=== PATIENT | female | born 1975 | race Caucasian/White ===

== ENCOUNTER 2020-04-20 11:02 | Emergency (ER) | payer OTHER, SELFPAY ==
[2020-04-20 11:10] VITALS: BP 141/96; PULSE 105; RESP 16; TEMP 36.9; O2SAT 99
--- NOTE | 2020-04-20 11:21 | ED.SKABFB ---
HPI - Skin/Abscess/Foreign Bdy General Chief complaint: Skin/Abscess/Foreign Body Stated complaint: rash on hands/arms/legs Time Seen by Provider: 04/20/20 11:21 Source: patient and RN notes reviewed History of Present Illness HPI narrative: Patient is a 45-year-old female who presents to the urgent care with complaints of itchy rash to the hands, backs of the legs and lower arms. Patient states that she noticed itching on Thursday evening and woke up Thursday morning with a rash to the hands. Patient states it seems to be getting closer to her buttocks and therefore she has been worried about the spreading. Patient denies of any new creams, lotions, detergents. States that she does not really leave her home at all . And has not been out in the [place]. No other acute complaints. No acute distress noted. Patient had a plan of care. Some parts of this dictation were generated by voice recognition software and may contain typographical and/or grammatical inaccuracies. Related Data Allergies Allergy/AdvReac Type Severity Reaction Status Date / Time venom-wasp Allergy Swelling Verified 04/20/20 11:30 amoxicillin [From Augmentin] AdvReac Nausea and Verified 04/20/20 11:28 Vomiting clavulanic acid AdvReac Nausea and Verified 04/20/20 11:28 [From Augmentin] Vomiting coconut AdvReac Nausea and Verified 04/20/20 11:23 Vomiting lisinopril AdvReac Nausea and Verified 04/20/20 11:29 Vomiting Review of Systems Review of Systems: Narrative: CONSTITUTIONAL: Denies fever, chills, or sweats. EYES: Denies visual changes, redness, or discharge. ENT: Denies rhinorrhea, congestion, sore throat, or otalgia. CARDIOVASCULAR: Denies chest pain, palpitations, or edema. RESPIRATORY: Denies cough or dyspnea. GASTROINTESTINAL: Denies abdominal pain, nausea, vomiting, or diarrhea. GENITOURINARY: Denies dysuria or hematuria. SKIN: Reports of an itchy red rash to bilateral hands, backs of the legs and lower arms MUSCULOSKELETAL: Denies back pain, joint pain, or myalgia. NEUROLOGIC: Denies headache, numbness, or weakness. All other systems reviewed are negative, except as documented in HPI. PMFSH Comments At the time of my signature, I reviewed and agree with the nursing past medical, surgical, social, and family history. There is no relevant family history pertinent to the patient complaint. Exam Narrative: Exam Narrative: GENERAL: This is a well-nourished, well-developed patient, in no apparent distress. HEAD: normocephalic, atraumatic. EYES: PERRL. Sclera clear/white. Vision is grossly intact. EARS: External ears normal NOSE: External nose normal with no obvious nasal discharge, nares without redness, no rhinorrhea. THROAT: Mucous membranes moist NECK: Neck supple, SKIN: Multiple areas of erythemic urticaria noted to the bilateral palms of the hands, bilateral posterior thighs NEURO: awake, alert, and oriented to person, place and time. There were no obvious focal neurologic abnormalities. EXTREMITIES: No clubbing, cyanosis, or edema. Course Vital Signs Vital signs: Vital Signs Temperature 98.5 F 04/20/20 11:10 Pulse Rate 105 H 04/20/20 11:10 Respiratory Rate 16 04/20/20 11:10 Blood Pressure 141/96 H 04/20/20 11:10 Pulse Oximetry 99 04/20/20 11:10 Temperature 98.5 F 04/20/20 11:10 Pulse Rate 105 H 04/20/20 11:10 Respiratory Rate 16 04/20/20 11:10 Blood Pressure 141/96 H 04/20/20 11:10 Pulse Oximetry 99 04/20/20 11:10 Reviewed-patient is informed that they may have pre-hypertension or hypertension based on a blood pressure reading in the department. I recommend the patient call the primary care provider listed on their discharge instructions or a physician of their choice this week to arrange follow-up for further evaluation of possible pre-hypertension or hypertension. MDM - Skin/Abscess/Foreign Bdy MDM Narrative Medical decision making narrative: Explained hives to the patient and she i
== END 2020-04-20 11:35 | disposition home or self-care (01) ==
PROVIDERS: Emergency Provider Nurse Practitioner Family; PCP Internal Medicine
DX: L50.9 Urticaria, unspecified (principal); E78.00 Pure hypercholesterolemia, unspecified; I10 Essential (primary) hypertension; J44.9 Chronic obstructive pulmonary disease, unspecified
CPT/HCPCS: 99213; G0463